=== PATIENT | female | born 1970 | race Native Hawaiian/Other Pacific Islander ===

== ENCOUNTER 2018-04-30 13:51 | Outpatient (CLI) | payer OTHER | END 2018-04-30 20:04 | disposition home or self-care (01) | LOC: MAMMO 13:51 | DX: Z12.31 Encounter for screening mammogram for malignant neoplasm of breast (principal) ==

== ENCOUNTER 2022-11-24 14:46 | Outpatient (CLI) | payer OTHER | END 2022-11-24 17:00 | disposition home or self-care (01) | LOC: RAD 14:46 | PROVIDERS: ATTEND Specialist | DX: Z12.31 Encounter for screening mammogram for malignant neoplasm of breast (principal) ==